=== PATIENT | male | born 2000 | race Caucasian/White ===

== ENCOUNTER 2021-01-23 20:59 | Emergency (ER) | payer MEDICAID, SELFPAY ==
[2021-01-23 21:24] VITALS: BP 123/64; PULSE 69; RESP 16; TEMP 36; O2SAT 97
--- NOTE | 2021-01-23 21:47 | ED.GENADUL_ITS ---
Discharge Plan Disposition Patient Disposition: HOME Condition: Stable Discharge Details Clinical Impression: Headache Primary Care Provider: Madelyn,Local ED Provider: Addis Denis Discharge Instructions Instructions: General Headache (ED) Additional Instructions: Take nausea medication as directed. Take pain medication twice daily as needed for severe pain. Do not drive or operate heavy machinery while on this medication. Take medication with food. Follow up with primary care provider in 3-5 days. Return to ED sooner if any worsening or concerns. Increase oral fluids. Please take Ibuprofen with food every 4-6 hours as needed for pain and swe lling. Do not take any more Tylenol while taking the pain medication. Discharge Data Discharge Date/Time-TO BE ENTERED AT DEPARTURE: 01/23/21 23:05 Medical Decision Making 20-year-old male presents to the ER with chief complaint of left-sided headache which began approximately 7 hours ago. Patient states that he took Tylenol prior to arrival with little to no relief. Associated with blurry vision denies any fever or chills. He does have erythemic tympanic membrane noted on the left side no neurological deficits. Denies any trauma or recent loss of consciousness. Positive photosensitivity. Denies any nausea vomiting. No nuchal rigidity. No focal neuro deficit. COMPARISON: No relevant prior studies available. FINDINGS: Brain: Normal. No hemorrhage. Unremarkable white matter. No mass effect. Cerebral ventricles: No ventriculomegaly. Bones/joints: Unremarkable. No acute fracture. Paranasal sin uses: Visualized sinuses are unremarkable. No fluid levels. Mastoid air cells: Visualized mastoid air cells are well aerated. Soft tissues: Unremarkable. IMPRESSION: 1. No acute intracranial abnormality. 2. No intracranial hemorrhage. 3. No evidence of acute infarct. 4. Sella and suprasellar region are unremarkable. No mass. 5. Ocular globes and orbital contents are unremarkable. Patient reevaluation, he states after the medications he is feeling somewhat better. Pain is now tolerable. Discussed home care strict return instructions patient verbalized understanding. Instructed to follow-up with PCP. This text was [facility] using [facility], please disregard any oddities of phrase or misspellings. HPI General Mode of arrival: ambulatory . Date/Time Provider Initiated Documentation: 01/23/21 21:12 . Limitations to Documentation: no limitations . Information obtained by: patient . HPI Narrative: 20-year-old male presents to the ER with chief complaint of left-sided headache which began approximately 7 hours ago. Patient states that he took Tylenol prior to arrival with little to no relief. Associated with blurry vision denies any fever or chills. He does have erythemic tympanic membrane noted on the left side no neurological deficits. Denies any trauma or recent loss of consciousness. Positive photosensitivity. Denies any nausea vomiting. No nuchal rigidity. No focal neuro deficit. Related Data Allergies Allergy/AdvReac Type Severity Reaction Status Date / Time No Known Allergies Allergy Unverified 01/23/21 22:32 General Stated Complaint: Headache ALONDRA: 3 Review of Systems Narrative: Constitutional: Negative for weight loss, alert and oriented, well groomed, normal body habitus, appears comfortable. HEENT: Denies trauma, blurry vision, nasal discharge, sore throat, trouble swallowing. Reports left-sided headache x7 hours positive Chest: Denies chest pain, palpitations, irregular rhythm, hypertension. Respiratory: Denies Shortness of breath, cough, hemoptysis. GI: Denies abdominal pain, vomiting, diarrhea, constipation. Positive nausea : Denies dysuria, hematuria, flank pain, rectal bleeding. Neuro: Denies dizziness, blurry vision, weakness, syncope, or facial numbness. Hematologic: Denies easy bruising, intolerance to heat or cold, hair loss. [facility] Social History Smoking/Tobacco Use Status: Current-Occasional Smoking risk assessment performed?: Yes Alcohol Intake: current Alcohol Intake frequency: a few times a month Drug use: Never Substance use type: does not use Do you feel safe at home: Yes Do you feel safe in your relationship?: Yes Exam Narrative Exam Narrative: Constitutional: Alert and oriented x3. Appears stated age. Normal body habitus. Head: Normocephalic, no trauma. Eyes: Pupils PERRLA, Red reflex noted, EOM's intact. Eyelids symmetrical without lesions, discharge, or swelling. ENT: Left tympanic membrane erythemic nonbulging right hepatic membrane within normal limits. Patient is not complaining of any ear pain, External ear normal to inspection, no mastoid TTP, swelling, or erythema, Nasal turbinates WNL, no nasal discharge. Normal dentition, Posterior pharynx WNL, no exudate. Chest: RRR, Normal S1, S2, distal pulses intact. Resp: Lungs clear to auscultation bilaterally, no wheezes, rales, or rhonchi. Musculoskeletal: Normal gait, 5/5 strength to all four extremities. Skin: No suspicious rashes or lesions. Capillary refill less than 2 sec. Neurologic: Cranial nerves II-XII intact. Alert and oriented x 3. DTR's intact. Hematologic/Lymphatic: No ecchymosis, no lymphadenopathy. Course Vital Signs Vital signs: Vital Signs Temperature 36.0 C L 01/23/21 21:24 Pulse 69 01/23/21 21:24 Respiratory Rate 16 01/23/21 21:24 Blood Pressure 123/64 01/23/21 21:24 Pulse Oximetry 97 01/23/21 21:24 Temperature 36.0 C L 01/23/21 21:24 Temperature Source Temporal Artery Scan 01/23/21 21:24 Pulse 69 01/23/21 21:24 Respiratory Rate 16 01/23/21 21:24 Respiratory Effort Non-Labored 01/23/21 21:26 Blood Pressure 123/64 01/23/21 21:24 Blood Pressure Position Sitting 01/23/21 21:24 Pulse Oximetry 97 01/23/21 21:24 Oxygen Delivery Method Room Air 01/23/21 21:24 Oxygen Flow Rate 0 01/23/21 21:24 Pain Level 7 01/23/21 21:27
[2021-01-23] MEDS: Ondansetron O.D.T. 4 MG TABEF PO (21:49)
[2021-01-23] MEDS: HYDROcodone 5/Acetaminophen 325 TAB PO (21:49)
--- NOTE | 2021-01-23 22:22 | DI.CT_ITS ---
Exam(s) CT HEAD WO EXAM: CT HEAD WO CLINICAL HISTORY: headache blurry vision. TECHNIQUE: Imaging Protocol: Axial computed tomography images with coronal and sagittal reformatted images were created and reviewed COMPARISON: No exams were available for comparison FINDINGS: The ventricular system is normal in appearance. No evidence of acute intracranial hemorrhage, mass effect, or midline shift. The orbital structures are unremarkable. The temporal bone structures appear intact. Calvarium: Normal. Visualized Paranasal sinuses/Mastoids: Clear. IMPRESSION: Normal cranial CT. RADIATION DOSE DELIVERED: 890.96mGy.cm Total DLP 890.96mGy.cm Total DLP DATA REPOSITORY: All CT scans at this facility are submitted to the National Radiology Data Registry (NRDR) Dose Index Registry (DIR) with the [employer] ([employer]). RADIATION OPTIMIZATION: All CT scans at this facility use at least one of these dose optimization te chniques: automated exposure control; mA and/or kV adjustment per patient size (includes targeted exa ms where dose is matched to clinical indication); or iterative reconstruction.
--- NOTE | 2021-01-23 22:59 | DI.VRAD_ITS ---
PROCEDURE INFORMATION: Exam: CT Head Without Contrast Exam date and time: 01/23/2021 9:47 PM Age: 20 years old Clinical indication: Pain; Headache not specified; Additional info: Blurry vision and headache TECHNIQUE: Imaging protocol: Computed tomography of the head without contrast. Radiation optimization: All CT scans at this facility use at least one of these dose optimization techniques: automated exposure control; mA and/or kV adjustment per patient size (includes targeted exams where dose is matched to clinical indication); or iterative reconstruction. COMPARISON: No relevant prior studies available. FINDINGS: Brain: Normal. No hemorrhage. Unremarkable white matter. No mass effect. Cerebral ventricles: No ventriculomegaly. Bones/joints: Unremarkable. No acute fracture. Paranasal sinuses: Visualized sinuses are unremarkable. No fluid levels. Mastoid air cells: Visualized mastoid air cells are well aerated. Soft tissues: Unremarkable. IMPRESSION: 1. No acute intracranial abnormality. 2. No intracranial hemorrhage. 3. No evidence of acute infarct. 4. Sella and suprasellar region are unremarkable. No mass. 5. Ocular globes and orbital contents are unremarkable. Dictated and Authenticated by: Edison Velasco MD. Ordering:MIOZ Mancini MD
[2021-01-23] MEDS: Ondansetron O.D.T. 4 MG TABEF, 3 TABS/BTL PO (23:10)
== END 2021-01-23 23:05 | disposition home or self-care (01) ==
PROVIDERS: Emergency Provider Registered Nurse Emergency
DX: R51.9 Headache, unspecified (principal)
CPT/HCPCS: 99284; 70450; 99283